=== PATIENT | female | born 1945 | race Caucasian/White ===

== ENCOUNTER → 2021-02-12 11:25 | Outpatient (CLI) | payer MEDICARE, SELFPAY ==
[2021-02-12 20:39] LABS: COVID19 - ORCAS (NP or Nasal) Negative (Negative)
== END ==
PROVIDERS: PCP Family Medicine; Visit Provider Physician Assistant
DX: Z20.822 Contact with and (suspected) exposure to COVID-19 (principal)
CPT/HCPCS: U0003

== ENCOUNTER → 2021-09-17 12:47 | Outpatient (CLI) | payer MEDICARE, SELFPAY ==
--- NOTE | 2021-09-17 12:49 | DI.US.S_ITS ---
PROCEDURE: US PERIPH VENOUS LOW EXTREM BI INDICATIONS: Ankle edema. TECHNIQUE: Real-time imaging, as well as color and pulse Doppler interrogation, were performed of the deep veins of both legs from the inguinal ligament to the popliteal fossa. COMPARISON: None. FINDINGS: Right: The common femoral, femoral and popliteal veins are normally compressible, and free of intraluminal thrombus. Color and pulse Doppler demonstrate normal phasic intravascular flow. There is normal augmentation response to distal compression maneuver. Left: The common femoral, femoral and popliteal veins are normally compressible, and free of intraluminal thrombus. Color and pulse Doppler demonstrate normal phasic intravascular flow. There is normal augmentation response to distal compression maneuver. IMPRESSION: Negative for deep venous thrombosis on either side. Dictated by: Jonathan Harris M.D. on 09/17/2021 at 12:37 Approved by: Jonathan Harris M.D. on 09/17/2021 at 12:38
== END ==
PROVIDERS: PCP Family Medicine; Referring Provider Physician Assistant Medical; Visit Provider Physician Assistant Medical
DX: R60.0 Localized edema (principal)
CPT/HCPCS: 93970

== ENCOUNTER → 2022-05-27 11:27 | Outpatient (CLI) | payer MEDICARE, SELFPAY ==
[2022-05-27 20:08] LABS: Alanine Aminotransferase 14 IU/L (<35); Albumin 3.8 g/dL (3.5-5.0); Albumin Globulin Ratio 1.2 (1.0-2.8); Alkaline Phosphatase 93 U/L (38-126); Aspartate Aminotransferase 25 IU/L (14-36); BUN Creatinine Ratio 25.6 (6-22); Bilirubin Total 0.2 mg/dL (0.2-1.3); Blood Urea Nitrogen 51 mg/dL (7-17); Carbon Dioxide 16 mmol/L (22-32); Chloride 115 mmol/L (98-107); Cholesterol 193 mg/dL (140-199); Estimated Glomerular Filt Rate 26 mL/min (>60); Globulin 3.2 g/dL (1.7-4.1); Glucose 119 mg/dL (80-110); HDL Cholesterol 27 mg/dL (40-60); HEMOLYSIS < 15 (0-50); Potassium 4.9 mmol/L (3.4-5.1); Sodium 141 mmol/L (137-145); Triglycerides 463 mg/dL (35-150); Uric Acid 8.8 mg/dL (2.5-6.2)
[2022-05-27 20:20] LABS: Hemoglobin A1C% w Est Avg Glu 5.7 % (4.0-6.0)
== END ==
PROVIDERS: PCP Family Medicine; Visit Provider Family Medicine
DX: E11.9 Type 2 diabetes mellitus without complications (principal); E78.5 Hyperlipidemia, unspecified; I10 Essential (primary) hypertension; M10.9 Gout, unspecified; M54.50 Low back pain, unspecified
CPT/HCPCS: 80053; 80061; 83036; 84550

== ENCOUNTER → 2022-06-25 12:08 | Outpatient (CLI) | payer MEDICARE, SELFPAY ==
[2022-06-25 20:02] LABS: Add Manual Diff / Slide Review NO; Basophils Absolute Auto 0 /uL (0-100); Basophils Percent Auto 0.8 % (0-2); Eosinophils Absolute Auto 200 /uL (0-450); Eosinophils Percent Auto 4.9 % (2-4); Hematocrit 36.1 % (36-46); Lymphocytes Absolute Auto 1100 /uL (1100-4500); Lymphocytes Percent Auto 22.4 % (25-40); Mean Corpuscular HGB Conc 33.3 % (30-36); Mean Corpuscular Hemoglobin 30.5 PG (26-34); Mean Corpuscular Volume 91.5 fL (80-100); Monocytes Absolute Auto 500 /uL (0-900); Monocytes Percent Auto 10.8 % (3-14); Neutrophils Absolute Auto 3100 /uL (1500-7000); Neutrophils Percent Auto 61.1 % (50-75); Platelet Count 178 X10^3/uL (150-400); Red Blood Cell Count 3.95 X10^6/uL (4.0-5.2); Red Cell Distribution Width 14.6 % (11.6-14.8)
[2022-06-25 20:24] LABS: Alanine Aminotransferase 14 IU/L (<35); Albumin 4.1 g/dL (3.5-5.0); Albumin Globulin Ratio 1.3 (1.0-2.8); Alkaline Phosphatase 91 U/L (38-126); Aspartate Aminotransferase 26 IU/L (14-36); BUN Creatinine Ratio 24.4 (6-22); Bilirubin Total 0.3 mg/dL (0.2-1.3); Blood Urea Nitrogen 49 mg/dL (7-17); Calcium 11.1 mg/dL (8.4-10.2); Carbon Dioxide 17 mmol/L (22-32); Chloride 112 mmol/L (98-107); Estimated Glomerular Filt Rate 26 mL/min (>60); Globulin 3.2 g/dL (1.7-4.1); Glucose 97 mg/dL (80-110); HEMOLYSIS < 15 (0-50); Sodium 143 mmol/L (137-145); Total Protein 7.3 g/dL (6.3-8.2); Uric Acid 9.3 mg/dL (2.5-6.2)
[2022-06-25 20:26] LABS: Potassium 5.6 mmol/L (3.4-5.1)
[2022-06-25 20:32] LABS: Hemoglobin A1C% w Est Avg Glu 5.4 % (4.0-6.0)
[2022-06-25 21:14] LABS: Vitamin B12 > 1000 pg/mL (239-931)
[2022-06-27 08:31] LABS: Calcium 10.9 mg/dL (8.7-10.3); Parathyroid Hormone, Intact 60 pg/mL (15-65)
== END ==
PROVIDERS: PCP Family Medicine; Visit Provider Family Medicine
DX: E11.9 Type 2 diabetes mellitus without complications (principal); I10 Essential (primary) hypertension; M10.9 Gout, unspecified
CPT/HCPCS: 80053; 82310; 82607; 83036; 83970; 84550; 85025

== ENCOUNTER → 2022-09-11 08:52 | Outpatient (CLI) | payer MEDICARE, SELFPAY ==
[2022-09-11 19:04] LABS: Alanine Aminotransferase 16 IU/L (<35); Albumin Globulin Ratio 1.2 (1.0-2.8); Alkaline Phosphatase 93 U/L (38-126); Aspartate Aminotransferase 23 IU/L (14-36); Bilirubin Total 0.3 mg/dL (0.2-1.3); Blood Urea Nitrogen 51 mg/dL (7-17); Calcium 11.2 mg/dL (8.4-10.2); Carbon Dioxide 19 mmol/L (22-32); Chloride 108 mmol/L (98-107); Estimated Glomerular Filt Rate 19 mL/min (>60); Globulin 3.3 g/dL (1.7-4.1); Glucose 92 mg/dL (80-110); HEMOLYSIS < 15 (0-50); Potassium 4.8 mmol/L (3.4-5.1); Sodium 141 mmol/L (137-145); Total Protein 7.3 g/dL (6.3-8.2); Uric Acid 8.7 mg/dL (2.5-6.2)
[2022-09-11 19:12] LABS: Hemoglobin A1C% w Est Avg Glu 5.8 % (4.0-6.0)
== END ==
PROVIDERS: PCP Family Medicine; Visit Provider Family Medicine
DX: E11.9 Type 2 diabetes mellitus without complications (principal); I10 Essential (primary) hypertension; M1A.09X0 Idiopathic chronic gout, multiple sites, without tophus (tophi); N18.9 Chronic kidney disease, unspecified
CPT/HCPCS: 80053; 83036; 84550

== ENCOUNTER → 2022-09-15 12:23 | Outpatient (CLI) | payer MEDICARE, SELFPAY ==
[2022-09-15 20:33] LABS: Add Manual Diff / Slide Review NO; Basophils Absolute Auto 0 /uL (0-100); Basophils Percent Auto 0.7 % (0-2); Eosinophils Absolute Auto 200 /uL (0-450); Eosinophils Percent Auto 4.3 % (2-4); Hematocrit 36.5 % (36-46); Hemoglobin 12.2 g/dL (12.0-16.0); Lymphocytes Absolute Auto 1400 /uL (1100-4500); Lymphocytes Percent Auto 28.4 % (25-40); Mean Corpuscular HGB Conc 33.5 % (30-36); Mean Corpuscular Hemoglobin 30.1 PG (26-34); Mean Corpuscular Volume 89.9 fL (80-100); Monocytes Absolute Auto 700 /uL (0-900); Neutrophils Absolute Auto 2500 /uL (1500-7000); Neutrophils Percent Auto 52.6 % (50-75); Platelet Count 175 X10^3/uL (150-400); Red Blood Cell Count 4.06 X10^6/uL (4.0-5.2); Red Cell Distribution Width 13.3 % (11.6-14.8); White Blood Cell Count 4.8 X10^3/uL (4.5-11.0)
[2022-09-15 20:39] LABS: Alanine Aminotransferase 16 IU/L (<35); Albumin 4.2 g/dL (3.5-5.0); Albumin Globulin Ratio 1.4 (1.0-2.8); Alkaline Phosphatase 111 U/L (38-126); Aspartate Aminotransferase 24 IU/L (14-36); BUN Creatinine Ratio 17.3 (6-22); Bilirubin Total 0.3 mg/dL (0.2-1.3); Blood Urea Nitrogen 48 mg/dL (7-17); Calcium 10.5 mg/dL (8.4-10.2); Carbon Dioxide 23 mmol/L (22-32); Chloride 106 mmol/L (98-107); Estimated Glomerular Filt Rate 17 mL/min (>60); Glucose 86 mg/dL (80-110); HEMOLYSIS < 15 (0-50); Sodium 141 mmol/L (137-145); Total Protein 7.2 g/dL (6.3-8.2); Uric Acid 8.6 mg/dL (2.5-6.2)
[2022-09-15 20:45] LABS: Potassium 5.6 mmol/L (3.4-5.1)
[2022-09-15 21:06] LABS: TSH w/ Reflex to FT4 0.04 uIU/mL (0.47-4.68)
[2022-09-16 18:02] LABS: Free T4, Direct Thyroxine 1.25 ng/dL (0.78-2.19)
== END ==
PROVIDERS: PCP Family Medicine; Visit Provider Physician Assistant
DX: M10.9 Gout, unspecified (principal); N18.9 Chronic kidney disease, unspecified
CPT/HCPCS: 80053; 84439; 84443; 84550; 85025

== ENCOUNTER → 2022-11-04 13:44 | Outpatient (CLI) | payer MEDICARE, SELFPAY ==
[2022-11-04 19:38] LABS: Hematocrit 41.5 % (36-46); Hemoglobin 13.8 g/dL (12.0-16.0)
[2022-11-04 19:40] LABS: BUN Creatinine Ratio 25.6 (6-22); Blood Urea Nitrogen 53 mg/dL (7-17); Calcium 10.9 mg/dL (8.4-10.2); Carbon Dioxide 24 mmol/L (22-32); Chloride 99 mmol/L (98-107); Estimated Glomerular Filt Rate 25 mL/min (>60); Glucose 173 mg/dL (80-110); HEMOLYSIS 16 (0-50); Potassium 3.8 mmol/L (3.4-5.1); Sodium 139 mmol/L (137-145)
[2022-11-04 20:24] LABS: Creatinine Urine Random 97.5 mg/dL
== END ==
PROVIDERS: PCP Family Medicine; Visit Provider Internal Medicine Nephrology
DX: N17.9 Acute kidney failure, unspecified (principal)
CPT/HCPCS: 80048; 82043; 82570; 85014; 85018

== ENCOUNTER → 2022-11-18 10:34 | Outpatient (CLI) | payer MEDICARE, SELFPAY ==
[2022-11-18 19:30] LABS: Alanine Aminotransferase 18 IU/L (<35); Albumin 3.9 g/dL (3.5-5.0); Albumin Globulin Ratio 1.3 (1.0-2.8); Alkaline Phosphatase 95 U/L (38-126); Aspartate Aminotransferase 33 IU/L (14-36); BUN Creatinine Ratio 19.2 (6-22); Bilirubin Total 0.7 mg/dL (0.2-1.3); Blood Urea Nitrogen 33 mg/dL (7-17); Calcium 10.9 mg/dL (8.4-10.2); Carbon Dioxide 25 mmol/L (22-32); Chloride 102 mmol/L (98-107); Estimated Glomerular Filt Rate 31 mL/min (>60); Glucose 105 mg/dL (80-110); HEMOLYSIS 30 (0-50); Potassium 4.1 mmol/L (3.4-5.1); Sodium 140 mmol/L (137-145); Total Protein 6.9 g/dL (6.3-8.2)
[2022-11-18 19:52] LABS: Creatinine Urine Random 146.5 mg/dL
[2022-11-18 19:56] LABS: Microalbumi Creatinin Ratio Ur 53.2 ug/mg CR (<30); Microalbumin Urine Random 7.8 mg/dL (0-1.6)
== END ==
PROVIDERS: PCP Family Medicine; Visit Provider Family Medicine
DX: E11.9 Type 2 diabetes mellitus without complications (principal); M1A.09X0 Idiopathic chronic gout, multiple sites, without tophus (tophi)
CPT/HCPCS: 80053; 82043; 82570; 84550

== ENCOUNTER → 2023-01-14 14:17 | Outpatient (CLI) | payer MEDICARE, SELFPAY ==
[2023-01-14 19:52] LABS: Blood Urea Nitrogen 44 mg/dL (7-17); Carbon Dioxide 24 mmol/L (22-32); Chloride 107 mmol/L (98-107); Estimated Glomerular Filt Rate 27 mL/min (>60); Glucose 127 mg/dL (80-110); HEMOLYSIS < 15 (0-50); Sodium 141 mmol/L (137-145)
== END ==
PROVIDERS: PCP Family Medicine; Visit Provider Internal Medicine Nephrology
DX: N17.9 Acute kidney failure, unspecified (principal)
CPT/HCPCS: 80048

== ENCOUNTER → 2023-05-05 14:24 | Outpatient (CLI) | payer MEDICARE, SELFPAY ==
[2023-05-05 20:26] LABS: Add Manual Diff / Slide Review NO; Basophils Absolute Auto 0 /uL (0-100); Basophils Percent Auto 0.6 % (0-2); Eosinophils Absolute Auto 200 /uL (0-450); Eosinophils Percent Auto 3.6 % (2-4); Hematocrit 38.4 % (36-46); Hemoglobin 12.9 g/dL (12.0-16.0); Lymphocytes Absolute Auto 1600 /uL (1100-4500); Lymphocytes Percent Auto 32.3 % (25-40); Mean Corpuscular HGB Conc 33.5 % (30-36); Mean Corpuscular Hemoglobin 31.1 PG (26-34); Mean Corpuscular Volume 92.9 fL (80-100); Monocytes Absolute Auto 600 /uL (0-900); Monocytes Percent Auto 12.1 % (3-14); Neutrophils Absolute Auto 2500 /uL (1500-7000); Neutrophils Percent Auto 51.4 % (50-75); Platelet Count 167 X10^3/uL (150-400); Red Blood Cell Count 4.14 X10^6/uL (4.0-5.2); Red Cell Distribution Width 16.4 % (11.6-14.8); White Blood Cell Count 4.9 X10^3/uL (4.5-11.0)
[2023-05-05 20:28] LABS: Alanine Aminotransferase 23 IU/L (<35); Albumin 3.7 g/dL (3.5-5.0); Albumin Globulin Ratio 1.2 (1.0-2.8); Alkaline Phosphatase 132 U/L (38-126); Aspartate Aminotransferase 31 IU/L (14-36); Bilirubin Total 0.4 mg/dL (0.2-1.3); Blood Urea Nitrogen 34 mg/dL (7-17); Calcium 10.4 mg/dL (8.4-10.2); Carbon Dioxide 24 mmol/L (22-32); Chloride 106 mmol/L (98-107); Estimated Glomerular Filt Rate 26 mL/min (>60); Globulin 3.2 g/dL (1.7-4.1); Glucose 127 mg/dL (80-110); HEMOLYSIS 17 (0-50); Potassium 4.6 mmol/L (3.4-5.1); Sodium 138 mmol/L (137-145); Total Protein 6.9 g/dL (6.3-8.2)
[2023-05-05 20:45] LABS: Vitamin D 25 Hydroxy (D3) 24.8 ng/mL (30.0-100.0)
[2023-05-05 20:59] LABS: Free T3, Triiodothyronine Free 4.59 pg/mL (2.77-5.27); Free T4, Direct Thyroxine 1.12 ng/dL (0.78-2.19)
[2023-05-05 21:12] LABS: Thyroid Stimulating Hormone 1.27 uIU/mL (0.47-4.68)
[2023-05-05 21:31] LABS: Creatinine Urine Random 95.3 mg/dL; Protein (Total) Urine Random 17 mg/dL (0-12); Protein Creatinine Ratio Urine 0.17 GRAM/24H
[2023-05-05 21:36] LABS: Microalbumi Creatinin Ratio Ur 54.5 ug/mg CR (<30); Microalbumin Urine Random 5.2 mg/dL (0-1.6)
[2023-05-06 22:13] LABS: x Labcorp Estim. Avg Glu (eAG) 126 mg/dL (.)
[2023-05-07 07:43] LABS: Parathyroid Hormone Int 107 pg/mL (15-65)
[2023-05-08 12:41] LABS: Immunoglobulin A, Serum 225 mg/dL (64-422); Immunoglobulin G,Serum 994 mg/dL (586-1602); Immunoglobulin M, Serum 37 mg/dL (26-217)
[2023-05-08 18:31] LABS: Albumin 3.3 g/dL (2.9-4.4); Alpha-1-Globulin 0.2 g/dL (0.0-0.4); Alpha-2-Globulin 0.9 g/dL (0.4-1.0); Gamma Globulin 0.9 g/dL (0.4-1.8); Globulin Total 3.1 g/dL (2.2-3.9); Protein, Total 6.4 g/dL (6.0-8.5)
[2023-05-09 15:58] LABS: ANA Screen, IFA Negative (.)
== END ==
PROVIDERS: Internal Medicine Nephrology; PCP Family Medicine; Visit Provider Family Medicine
DX: E11.9 Type 2 diabetes mellitus without complications (principal); E78.5 Hyperlipidemia, unspecified; G62.9 Polyneuropathy, unspecified; I10 Essential (primary) hypertension; M10.9 Gout, unspecified; N18.4 Chronic kidney disease, stage 4 (severe); R53.83 Other fatigue; N17.9 Acute kidney failure, unspecified; E11.22 Type 2 diabetes mellitus with diabetic chronic kidney disease; N18.32 Chronic kidney disease, stage 3b
CPT/HCPCS: 80053; 82043; 82306; 82570; 82784; 83036; 83883; 83970; 84155; 84156; 84165; 84439; 84443; 84481; 85025; 86038; 86334

== ENCOUNTER → 2023-05-13 14:12 | Outpatient (CLI) | payer MEDICARE, SELFPAY ==
[2023-05-15 19:36] LABS: Free Kappa Lt Chains, Serum 42.3 mg/L (3.3-19.4); Free Lambda Lt Chains,Serum 32.6 mg/L (5.7-26.3)
== END ==
PROVIDERS: PCP Family Medicine; Visit Provider Family Medicine
DX: N18.4 Chronic kidney disease, stage 4 (severe) (principal); G62.9 Polyneuropathy, unspecified; I10 Essential (primary) hypertension
CPT/HCPCS: 83883

== ENCOUNTER → 2023-09-02 10:24 | Outpatient (CLI) | payer MEDICARE, SELFPAY ==
[2023-09-02 19:10] LABS: Cholesterol 168 mg/dL (140-199); HDL Cholesterol 34 mg/dL (40-60); LDL Cholesterol Calculated 78 mg/dL (<100); Triglycerides 281 mg/dL (35-150)
== END ==
PROVIDERS: PCP Family Medicine; Visit Provider Family Medicine
DX: E11.22 Type 2 diabetes mellitus with diabetic chronic kidney disease (principal); N18.4 Chronic kidney disease, stage 4 (severe)
CPT/HCPCS: 80061

== ENCOUNTER → 2023-11-10 10:24 | Outpatient (CLI) | payer MEDICARE, SELFPAY ==
[2023-11-10 19:15] LABS: Hemoglobin A1C% w Est Avg Glu 6.8 % (4.0-6.0)
[2023-11-10 19:19] LABS: Add Manual Diff / Slide Review NO; Basophils Absolute Auto 100 /uL (0-100); Basophils Percent Auto 0.9 % (0-2); Eosinophils Absolute Auto 200 /uL (0-450); Eosinophils Percent Auto 2.8 % (2-4); Hematocrit 40.1 % (36-46); Hemoglobin 13.4 g/dL (12.0-16.0); Lymphocytes Absolute Auto 1100 /uL (1100-4500); Lymphocytes Percent Auto 20.4 % (25-40); Mean Corpuscular HGB Conc 33.4 % (30-36); Mean Corpuscular Volume 92.9 fL (80-100); Monocytes Absolute Auto 600 /uL (0-900); Monocytes Percent Auto 9.9 % (3-14); Neutrophils Absolute Auto 3700 /uL (1500-7000); Platelet Count 162 X10^3/uL (150-400); Red Blood Cell Count 4.32 X10^6/uL (4.0-5.2); Red Cell Distribution Width 14.9 % (11.6-14.8); White Blood Cell Count 5.6 X10^3/uL (4.5-11.0)
[2023-11-10 19:24] LABS: Alanine Aminotransferase 29 IU/L (<35); Albumin 3.9 g/dL (3.5-5.0); Albumin Globulin Ratio 1.3 (1.0-2.8); Alkaline Phosphatase 132 U/L (38-126); Aspartate Aminotransferase 50 IU/L (14-36); BUN Creatinine Ratio 15.7 (6-22); Bilirubin Total 0.7 mg/dL (0.2-1.3); Blood Urea Nitrogen 30 mg/dL (7-17); Calcium 11.4 mg/dL (8.4-10.2); Carbon Dioxide 22 mmol/L (22-32); Chloride 104 mmol/L (98-107); Cholesterol 168 mg/dL (140-199); Estimated Glomerular Filt Rate 27 mL/min (>60); Globulin 3.1 g/dL (1.7-4.1); Glucose 145 mg/dL (80-110); HDL Cholesterol 30 mg/dL (40-60); HEMOLYSIS < 15 (0-50); LDL Cholesterol Calculated 89 mg/dL (<100); Potassium 4.2 mmol/L (3.4-5.1); Sodium 138 mmol/L (137-145); Triglycerides 246 mg/dL (35-150)
[2023-11-10 19:46] LABS: Creatinine Urine Random 98.6 mg/dL
[2023-11-10 19:52] LABS: Microalbumin Urine Random 6.6 mg/dL (0-1.6)
[2023-11-10 20:39] LABS: Microalbumi Creatinin Ratio Ur 66.9 ug/mg CR (<30)
== END ==
PROVIDERS: Internal Medicine Nephrology; PCP Family Medicine; Visit Provider Family Medicine
DX: E11.42 Type 2 diabetes mellitus with diabetic polyneuropathy (principal); E11.22 Type 2 diabetes mellitus with diabetic chronic kidney disease; N18.4 Chronic kidney disease, stage 4 (severe); I10 Essential (primary) hypertension; E78.2 Mixed hyperlipidemia
CPT/HCPCS: 80053; 80061; 82043; 82570; 83036; 85025

== ENCOUNTER → 2024-02-25 14:20 | Outpatient (CLI) | payer MEDICARE, SELFPAY ==
[2024-02-26 19:18] LABS: BUN Creatinine Ratio 18.9 (6-22); Blood Urea Nitrogen 36 mg/dL (7-17); Calcium 10.6 mg/dL (8.4-10.2); Carbon Dioxide 20 mmol/L (22-32); Chloride 112 mmol/L (98-107); Estimated Glomerular Filt Rate 27 mL/min (>60); Glucose 128 mg/dL (80-110); HEMOLYSIS 36 (0-50); Phosphorous 2.8 mg/dL (2.8-4.1); Potassium 4.3 mmol/L (3.4-5.1); Sodium 142 mmol/L (137-145)
[2024-02-26 19:35] LABS: Vitamin D 25 Hydroxy (D3) 41.5 ng/mL (30.0-100.0)
[2024-03-01 14:39] LABS: Calcium 10.7 mg/dL (8.7-10.3); Parathyroid Hormone, Intact 145 pg/mL (15-65)
[2024-03-08 07:12] LABS: 1,25-Dihydroxy, Vitamin D-2 <10 pg/mL (.)
== END ==
PROVIDERS: PCP Family Medicine; Visit Provider Internal Medicine Nephrology
DX: N18.4 Chronic kidney disease, stage 4 (severe) (principal); E83.52 Hypercalcemia; R80.9 Proteinuria, unspecified; E11.22 Type 2 diabetes mellitus with diabetic chronic kidney disease; I10 Essential (primary) hypertension; N18.32 Chronic kidney disease, stage 3b
CPT/HCPCS: 80069; 82306; 82310; 82652; 83970

== ENCOUNTER → 2024-04-01 08:47 | Outpatient (CLI) | payer MEDICARE, SELFPAY ==
[2024-04-01 19:03] LABS: Hematocrit 39.7 % (36-46)
[2024-04-01 19:12] LABS: BUN Creatinine Ratio 19.7 (6-22); Blood Urea Nitrogen 40 mg/dL (7-17); Calcium 10.1 mg/dL (8.4-10.2); Carbon Dioxide 16 mmol/L (22-32); Chloride 113 mmol/L (98-107); Estimated Glomerular Filt Rate 25 mL/min (>60); Glucose 91 mg/dL (80-110); HEMOLYSIS 19 (0-50); Potassium 4.2 mmol/L (3.4-5.1); Sodium 139 mmol/L (137-145)
[2024-04-01 19:26] LABS: Creatinine Urine Random 72.76 mg/dL; Protein (Total) Urine Random 29 mg/dL (0-12); Protein Creatinine Ratio Urine 0.39 GRAM/24H
[2024-04-01 19:31] LABS: Microalbumin Urine Random 6.2 mg/dL (0-1.6)
== END ==
PROVIDERS: PCP Family Medicine
DX: E11.22 Type 2 diabetes mellitus with diabetic chronic kidney disease (principal); I12.9 Hypertensive chronic kidney disease with stage 1 through stage 4 chronic kidney disease, or unspecified chronic kidney disease; N18.4 Chronic kidney disease, stage 4 (severe); E83.52 Hypercalcemia
CPT/HCPCS: 80048; 82043; 82570; 84156; 85014; 85018

== ENCOUNTER → 2024-06-20 13:54 | Outpatient (CLI) | payer MEDICARE, SELFPAY ==
[2024-06-20 20:31] LABS: Albumin 3.3 g/dL (3.5-5.0); BUN Creatinine Ratio 16.3 (6-22); Blood Urea Nitrogen 32 mg/dL (7-17); Carbon Dioxide 18 mmol/L (22-32); Chloride 111 mmol/L (98-107); Estimated Glomerular Filt Rate 26 mL/min (>60); Glucose 171 mg/dL (80-110); HEMOLYSIS < 15 (0-50); Phosphorous 2.7 mg/dL (2.8-4.1); Sodium 135 mmol/L (137-145); Uric Acid 4.9 mg/dL (2.5-6.2)
[2024-06-20 20:33] LABS: Calcium 10.1 mg/dL (8.4-10.2); Magnesium 1.7 mg/dL (1.6-2.3); Potassium 4.4 mmol/L (3.4-5.1)
[2024-06-20 21:32] LABS: Creatinine Urine Random 73.67 mg/dL; Protein (Total) Urine Random 22 mg/dL (0-12); Protein Creatinine Ratio Urine 0.29 GRAM/24H
== END ==
PROVIDERS: PCP Family Medicine; Visit Provider Internal Medicine Nephrology
DX: N18.4 Chronic kidney disease, stage 4 (severe) (principal)
CPT/HCPCS: 80048; 82040; 82043; 82570; 83735; 83970; 84100; 84156; 84550

== ENCOUNTER → 2024-09-26 12:44 | Outpatient (CLI) | payer MEDICARE, SELFPAY ==
--- NOTE | 2024-10-04 18:07 | DI.NM.S_ITS ---
DATE OF SERVICE: 10/04/2024 PHARMACOLOGICAL PERFUSION STUDY INDICATIONS: Atrial fibrillation, syncope. RADIOPHARMACEUTICAL: 25.8 mCi technetium-99m Myoview IV was injected at stress and 26.2 mCi technetium-99m Myoview IV was injected at rest. CARDIAC STRESS: The patient underwent IV Lexiscan perfusion study under the supervision of an attending staff using standard intravenous Lexiscan as per protocol. The patient remained hemodynamically stable. Resting blood pressure 148/70. Baseline rhythm is sinus. During stress, no convincing ischemic changes seen. Rare PVCs. No chest pain. RAW DATA: There is a large breast shadow seen. GATED STUDY: Resting LV ejection fraction 69% and stress LV ejection fraction 71% without any obvious wall motion abnormalities. Resting end- diastolic volume 88 mL. TID ratio 1.32. This is a pharmacological perfusion study. MYOCARDIAL PERFUSION SCAN: Please note, patient does not have any stress prone images. Stress supine and resting supine images were compared to each other. Resting supine images revealed large size, severely decreased perfusion of anterior wall extending into the anterior apex. On stress supine, there is improvement. On stress supine, [id number] size, severely decreased perfusion of distal anterior wall and anterior apex only. There is no reversible ischemia. CONCLUSION: 1. No obvious reversible ischemia. 2. Predominantly fixed distal anterior wall and anteroapical perfusion defect with overall improvement in perfusion defect in the stress images than resting images. There are no prone images; however, on raw data, there is a large breast shadow seen. On gated study, preserved left ventricular function without any obvious wall motion abnormalities. Hence, most likely, we are dealing with breast tissue attenuation artifact. Correlate clinically. This is not a high-risk study. Claire Noguera - NEEDLEWORKER/fn/ME doc#: [id number]/job#: [id number] dd: 10/04/2024 14:10:00 dt: 10/04/2024 17:15:00 DICTATING MD/COPIES TO: Raffi Meza MD COPIES MNE: VINOD;
== END ==
PROVIDERS: PCP Family Medicine; Referring Provider Family Medicine; Visit Provider Family Medicine
DX: I48.0 Paroxysmal atrial fibrillation (principal); R55 Syncope and collapse; Z91.81 History of falling
CPT/HCPCS: 78452; 93017; A9502; J2785

== ENCOUNTER → 2024-11-18 11:29 | Outpatient (CLI) | payer MEDICARE, OTHER, SELFPAY ==
--- NOTE | 2024-11-18 11:30 | DI.ECHO.S_ITS ---
[facility] : : [address] : : [place] : : [id number] : : Phone: [phone] Echocardiogram Report + + :Name: ADEEL ROBERTSON Study Date: 11/18/2024 Height: 66 in : :[facility] ReadingLocation: Weight: 270 lb: : Gender: Female BSA: 2.3 m2 : :: 1945 Age: 79 yrs : :Reason For Study: ATRIAL FIBRILLATION : :Ordering Physician: ELIZABETH, : :NORMA Performed By: Malcolm Almeida : :Referring: NORMA JOHNSON : + + Interpretation Summary The ejection fraction is estimated to be 60-65%. Grade I diastolic dysfunction. The right ventricular systolic function is normal. The inferior vena cava was not visualized. No significant valvular abnormality. Procedure: A two-dimensional transthoracic echocardiogram with color flow and Doppler was performed. The study quality was technically difficult. There is no prior echocardiogram noted for this patient. The patient was in atrial fibrillation with heart rates between 67-88 bpm during the exam. Left Ventricle: The left ventricle is normal in size. Left ventricular wall thickness is mildly increased. There is no ventricular septal defect visualized. The ejection fraction is estimated to be 60-65%. There are no focal wall motion abnormalities. Grade I diastolic dysfunction. Right Ventricle: The right ventricle is mildly dilated. The right ventricular systolic function is normal. Atria: The left atrial size is normal. Right atrial size is normal. There is no Doppler evidence for an interatrial shunt. Mitral Valve: The mitral valve leaflets are mildly calcified. There is mild mitral annular calcification. There is no mitral regurgitation noted. Aortic Valve: The aortic valve is mildly calcified. The aortic valve is grossly normal. There is no aortic valve stenosis. No aortic regurgitation is present. Tricuspid Valve: The tricuspid valve is not well visualized, but is grossly normal. There is trace tricuspid regurgitation. Pulmonic Valve: The pulmonic valve is not well seen, but is grossly normal. There is no pulmonic valvular regurgitation. Great Vessels: The aortic root is normal size. The dimensions of the ascending aorta are normal. The pulmonary artery is normal size. The inferior vena cava was not visualized. Pericardium/ Pleura There is no pericardial effusion. MMode/2D Measurements & Calculations LVIDd: 4.8 cm LVOT diam: 2.2 cm LVIDs: 3.1 cm Ao root diam: 3.5 cm FS: 35.6 % asc Aorta Diam: 3.4 cm EPSS: 0.82 cm Ao Arch Diam (Prox Trans): 1.7 cm IVSd: 1.3 cm LVPWd: 1.3 cm LV membreno. diameter/BSA (cm/m^2): 2.1 LV sys. diameter/BSA (cm/m^2): 1.4 LA A2 area: 19.0 cm2 RA long axis: 5.5 cm LA A4 area: 20.4 cm2 RA area: 14.0 cm2 LA length (vol): 5.4 cm RA vol: 30.6 ml LA vol: 60.6 ml RA : 13.5 ml/m2 LA vol index: 26.7 ml/m2 RVD1 (basal): 4.6 cm RVD2 (mid): 3.7 cm TAPSE: 2.3 cm Doppler Measurements & Calculations Ao V2 max: 130.0 cm/sec LVOT Max Chase: 99.2 cm/sec Ao V2 mean: 93.1 cm/sec LV V1 max P.9 mmHg Ao max P.8 mmHg LV V1 VTI: 23.2 cm Ao mean P.8 mmHg SELMA(I,D): 3.2 cm2 Ao V2 VTI: 28.0 cm SELMA(V,D): 2.9 cm2 sev ratio: 0.83 SELMA indexed to BSA (cm^2/m^2): 1.4 MV E max chase: 67.0 cm/sec TR max chase: 245.4 cm/sec MV A max chase: 105.7 cm/sec TR max P.1 mmHg MV E/A: 0.63 PA V2 max: 109.5 cm/sec Med Peak E' Chase: 4.6 cm/sec PA V2 mean: 70.6 cm/sec E/E' med: 14.5 PA mean P.4 mmHg Lat Peak E' Chase: 4.0 cm/sec PA pr(Accel): 31.0 mmHg E/E' lat: 16.7 E/e' average: 15.6 MV dec time: 0.22 sec SV(LVOT): 89.5 ml Reading Physician:04:37 PM
== END ==
PROVIDERS: PCP Family Medicine; Referring Provider Family Medicine; Visit Provider Family Medicine
DX: I48.0 Paroxysmal atrial fibrillation (principal); R55 Syncope and collapse; I34.81 Nonrheumatic mitral (valve) annulus calcification
CPT/HCPCS: 93306

== ENCOUNTER → 2024-11-28 13:30 | Outpatient (CLI) | payer MEDICARE, OTHER, SELFPAY ==
[2024-11-28 19:00] LABS: Hematocrit 41.9 % (36-46); Hemoglobin 13.7 g/dL (12.0-16.0); Mean Corpuscular HGB Conc 32.7 % (30-36); Mean Corpuscular Hemoglobin 29.9 PG (26-34); Mean Corpuscular Volume 91.4 fL (80-100); Platelet Count 176 X10^3/uL (150-400); Red Blood Cell Count 4.58 X10^6/uL (4.0-5.2); Red Cell Distribution Width 15.1 % (11.6-14.8); White Blood Cell Count 5.8 X10^3/uL (4.5-11.0)
[2024-11-28 19:22] LABS: Albumin 3.7 g/dL (3.5-5.0); BUN Creatinine Ratio 16.3 (6-22); Blood Urea Nitrogen 35 mg/dL (7-17); Calcium 10.6 mg/dL (8.4-10.2); Carbon Dioxide 20 mmol/L (22-32); Chloride 107 mmol/L (98-107); Estimated Glomerular Filt Rate 23 mL/min (>60); Glucose 136 mg/dL (80-110); HEMOLYSIS < 15 (0-50); Magnesium 1.8 mg/dL (1.6-2.3); Phosphorous 2.8 mg/dL (2.8-4.1); Potassium 4.4 mmol/L (3.4-5.1); Sodium 135 mmol/L (137-145); Uric Acid 4.5 mg/dL (2.5-6.2)
[2024-11-28 19:38] LABS: Vitamin D 25 Hydroxy (D3) 35.6 ng/mL (30.0-100.0)
[2024-11-28 19:43] LABS: Creatinine Urine Random 75.79 mg/dL; Protein (Total) Urine Random 40 mg/dL (0-12); Protein Creatinine Ratio Urine 0.52 GRAM/24H
[2024-11-28 19:48] LABS: Microalbumin Urine Random 7.9 mg/dL (0-1.6)
[2024-11-30 07:09] LABS: Parathyroid Hormone Int 181 pg/mL (15-65)
== END ==
PROVIDERS: PCP Family Medicine; Visit Provider Internal Medicine Nephrology
DX: N18.4 Chronic kidney disease, stage 4 (severe) (principal)
CPT/HCPCS: 80048; 82040; 82043; 82306; 82570; 83735; 83970; 84100; 84156; 84550; 85027

== ENCOUNTER → 2025-02-20 09:27 | Outpatient (CLI) | payer MEDICARE, OTHER, SELFPAY ==
[2025-02-20 18:54] LABS: Cholesterol 156 mg/dL (140-199); HDL Cholesterol 34 mg/dL (40-60); LDL Cholesterol Calculated 94 mg/dL (<100); Triglycerides 138 mg/dL (35-150)
[2025-02-20 19:00] LABS: Hemoglobin A1C% w Est Avg Glu 6.5 % (4.0-6.0)
[2025-02-20 19:25] LABS: Thyroid Stimulating Hormone 1.69 uIU/mL (0.47-4.68)
== END ==
PROVIDERS: PCP Family Medicine; Referring Provider Family Medicine; Visit Provider Family Medicine
DX: E11.22 Type 2 diabetes mellitus with diabetic chronic kidney disease (principal); N18.4 Chronic kidney disease, stage 4 (severe); I10 Essential (primary) hypertension; E11.42 Type 2 diabetes mellitus with diabetic polyneuropathy; G47.33 Obstructive sleep apnea (adult) (pediatric)
CPT/HCPCS: 80061; 83036; 84443

== ENCOUNTER → 2025-06-20 10:20 | Outpatient (CLI) | payer MEDICARE, OTHER, SELFPAY | PROVIDERS: PCP Family Medicine; Visit Provider Physician Assistant Medical | DX: L03.312 Cellulitis of back [any part except buttock and flank] (principal) | CPT/HCPCS: 87070; 87075; 87077; 87147; 87186; 87205 ==

== ENCOUNTER → 2025-06-23 09:40 | Outpatient (CLI) | payer OTHER, SELFPAY ==
[2025-06-23 11:39] LABS: Blood Urea Nitrogen 44 mg/dL (7-17); Calcium 10.6 mg/dL (8.4-10.2); Carbon Dioxide 15 mmol/L (22-32); Chloride 107 mmol/L (98-107); Estimated Glomerular Filt Rate 21 mL/min (>60); Glucose 111 mg/dL (70-99); HEMOLYSIS < 15 (0-50); Phosphorous 3.2 mg/dL (2.8-4.1); Potassium 4.0 mmol/L (3.4-5.1); Sodium 137 mmol/L (137-145)
[2025-06-23 11:52] LABS: Vitamin D 25 Hydroxy (D3) 39.5 ng/mL (30.0-100.0)
[2025-06-24 07:36] LABS: Calcium 10.6 mg/dL (8.7-10.3); Parathyroid Hormone, Intact 144 pg/mL (15-65)
== END ==
PROVIDERS: PCP Family Medicine; Referring Provider Internal Medicine Endocrinology, Diabetes & Metabolism; Visit Provider Internal Medicine Endocrinology, Diabetes & Metabolism
DX: E83.52 Hypercalcemia (principal); R79.89 Other specified abnormal findings of blood chemistry
CPT/HCPCS: 36415; 80048; 82306; 82310; 82330; 83970; 84100

== ENCOUNTER → 2025-06-28 15:07 | Outpatient (CLI) | payer MEDICARE, OTHER, SELFPAY | PROVIDERS: PCP Family Medicine; Visit Provider Physician Assistant Medical | DX: L02.91 Cutaneous abscess, unspecified (principal) | CPT/HCPCS: 87070; 87075; 87205 ==

== ENCOUNTER → 2025-08-14 11:01 | Outpatient (CLI) | payer MEDICARE, OTHER, SELFPAY ==
[2025-08-14 19:01] LABS: Hemoglobin A1C% w Est Avg Glu 6.4 % (4.0-6.0)
== END ==
PROVIDERS: PCP Family Medicine; Visit Provider Family Medicine
DX: E11.36 Type 2 diabetes mellitus with diabetic cataract (principal)
CPT/HCPCS: 83036